=== PATIENT | male | born 1995 | race African-American/Black ===

== ENCOUNTER 2016-12-09 13:20 | Emergency (ER) | payer MEDICAID, OTHER ==
[~2016-12-09] VITALS: Ht 170.2 cm; Wt 80.0 kg
[2016-12-09 13:24] VITALS: BP 135/69; PULSE 88; RESP 18; TEMP 99.5; O2SAT 96
--- NOTE | 2016-12-09 14:52 | PD ---
HPI Chief Complaint: Cold / Flu Symptoms Time Seen by Provider: 14:51 Travel History International Travel<30 days: No Contact w/Intl Traveler<30days: No Traveled to known affect area: No History of Present Illness HPI 21-year-old male presents to the ED via EMS for evaluation of 2 day history of sinus congestion, rhinorrhea, nonproductive cough, shortness of breath. Gradual onset approximately 10 AM yesterday. He endorses subjective fevers, has not taken a temperature at home. Patient denies headache, dizziness, sore throat, chest pain, palpitations, abdominal pain, dysuria, back pain. He endorses sick contacts, states that his young son also has a runny nose. He denies this years flu vaccination. He is a current smoker. Denies chronic health problems, takes no daily medications, NKDA. PFSH Social History Tobacco Use: Yes (current) Allergies-Medications (Allergen,Severity, Reaction): Coded Allergies: No Known Allergies (Unverified , 12/09/16) Reported Meds & Prescriptions Reported Meds & Active Scripts Active Amoxicillin 500 Mg Cap 500 Mg PO BID 10 Days Proair Hfa 8.5 GM Inh (Albuterol Sulfate) 90 Mcg/Act Aer 2 Puff INH Q6H PRN 108 mcg/actuation Review of Systems Except as stated in HPI: all other systems reviewed are Neg Physical Exam Narrative GENERAL: Well-nourished, well-developed black male in no acute distress. SKIN: Warm and dry. HEAD: Normocephalic. Atraumatic. EYES: No scleral icterus. No injection or drainage. PERRLA. EOMI. ENT: Pearly negrete tympanic membranes bilaterally. Nasal mucosa is moist. Oropharynx mild posterior erythema. No exudates or edema. Airway patent. Uvula midline. NECK: Supple, trachea midline. No JVD or lymphadenopathy. CARDIOVASCULAR: Regular rate and rhythm without murmurs, gallops, or rubs. 2+ DP and radial pulses bilaterally. RESPIRATORY: Diffuse wheezing in all lung clancy.. No accessory muscle use. GASTROINTESTINAL: Abdomen soft, non-tender, nondistended. + Bowel sounds MUSCULOSKELETAL: No cyanosis, or edema. Patient is ambulatory and moves extremities spontaneously. BACK: Nontender without obvious deformity. No CVA tenderness. Data Data Last Documented VS Vital Signs Date Time Temp Pulse Resp B/P Pulse Ox O2 Delivery O2 Flow Rate FiO2 12/09/16 13:24 99.5 88 18 135/69 96 Room Air Orders Electrocardiogram (12/09/16 ) Chest, Single Ap (12/09/16 14:58) Albuterol-Ipratropium Neb (Duoneb Neb) (12/09/16 15:00) Dexamethasone Inj (Decadron Inj) (12/09/16 15:00) Influenzae A/B Antigen (12/09/16 14:58) Group A Rapid Strep Screen (12/09/16 14:58) Acetaminophen (Tylenol) (12/09/16 15:00) MDM Medical Decision Making Medical Screen Exam Complete: Yes Emergency Medical Condition: Yes Differential Diagnosis Influenza versus viral syndrome versus asthma versus pneumonia versus strep pharyngitis versus other Narrative Course 21-year-old male smoker presents to the ED via EMS for evaluation of 2 day history of sinus congestion, rhinorrhea, nonproductive cough, shortness of breath. Gradual onset approximately 10 AM yesterday. He endorses subjective fevers, has not taken a temperature at home. Patient denies headache, dizziness , sore throat, chest pain, palpitations, abdominal pain, dysuria, back pain. He endorses sick contacts. He denies this years flu vaccination. Vitals reviewed. Physical exam reveals a oxt-pdvxe-[id number] black male in no acute distress. Mild posterior erythema of the oropharynx. No visible exudates. Uvula midline. Airway patent. There is diffuse wheezing in bilateral lung clancy. Abdomen soft, nontender. Patient was administered Tylenol, IM steroids , 2 nebs 3. EKG: Rate 81, sinus rhythm. MT interval 103, QRS 86, QTC 371. Normal axis. No ST elevations. Reviewed by Dr. Garcia. CXR: No acute cardiopulmonary findings per radiology read. Influenza negative. Rapid strep swab. Positive for group A strep. Recheck of the patient reveals improvement of his breathing symptoms. The lungs are remarkably clear as compared to previous exam. Patient was prescribed amoxicillin 500 mg twice a day 10 days. He was provided with a prescription for a rescue inhaler. He is instructed to take all medication as prescribed, follow up with the primary care provider. He indicated understanding of the instructions and was amenable to plan of care. He is stable and discharged home. Diagnosis Primary Impression: Acute streptococcal pharyngitis Referrals: Primary Care Physician Patient Instructions: General Instructions, Strep Throat (ED), Wheezing (ED) Additional Instructions: Stop smoking. Take all antibiotics as prescribed, even if your symptoms resolve. Albuterol inhaler as needed for wheezing, shortness of breath. Tylenol or ibuprofen as needed for fever. Follow-up with the primary care provider this week. Return to the ED for any urgent or emergent medical condition. Med/Other Pt SpecificInfo: Prescription(s) given Scripts Amoxicillin 500 Mg Puk771 Mg PO BID 10 Days Ref 0 Prov:Santosh Luz MD 12/09/16 Albuterol 8.5 GM Inh (Proair Hfa 8.5 GM Inh)90 Mcg/Act Aer2 Puff INH Q6H PRN ( SHORTNESS OF BREATH) #1 INHALER Ref 0 108 mcg/actuation Prov:Santosh Luz MD 12/09/16 Disposition: 01 DISCHARGE HOME Condition: Stable Yahaira Mott Dec 09, 2016 14:52
[2016-12-09] MEDS ORDERED: RESP: ALBUTEROL 2.5 MG/IPRATROPIUM 0.5 MG NEB (SCH) INH (15:00)
[2016-12-09] MEDS ORDERED: ACETAMINOPHEN 325 MG TAB PO ONE (15:00)
[2016-12-09] MEDS ORDERED: DEXAMETHASONE SOD PHOS 4 MG/ML VIAL IM ONE (15:00)
--- NOTE | 2016-12-09 16:29 | RADRPT ---
EXAM DATE/TIME: 12/09/2016 16:10 [facility] COMPARISON: No previous studies available for comparison. INDICATIONS : Chest congestion, cough for 12 hours MEDICAL HISTORY : None. SURGICAL HISTORY : None. ENCOUNTER: Initial ACUITY: 1 day PAIN SCORE: 5/10 LOCATION: Center of chest FINDINGS: A single view of the chest demonstrates the lungs to be symmetrically aerated without evidence of mas s, infiltrate or effusion. The cardiomediastinal contours are unremarkable. Osseous structures are intact. CONCLUSION: 1. No acute cardiopulmonary findings identified. Jose Calderon MD on December 09, 2016 at 16:27 Board Certified Radiologist. This report was verified electronically.
[2016-12-09] MEDS ORDERED: ALBUAER3 INH (16:42)
[2016-12-09] MEDS ORDERED: AMOX500C PO (16:42)
--- NOTE | 2016-12-10 17:23 | EKG ---
Date Performed: 12/09/2016 Time Performed: 14:07:08 PTAGE: 21 years EKG: Sinus rhythm WITH SHORT HI INTERVAL NONSPECIFIC T-WAVE ABNORMALITY BORDERLINE ECG NO PREVIOUS TRACING DOCTOR: Lionel Serrato Interpretating Date/Time 12/10/2016 17:21:14
== END 2016-12-09 17:11 | disposition home or self-care (01) ==
LOC: NEPB 13:20
DX: J02.0 Streptococcal pharyngitis (principal); B95.0 Streptococcus, group A, as the cause of diseases classified elsewhere; R94.31 Abnormal electrocardiogram [ECG] [EKG]; Z72.0 Tobacco use
CPT/HCPCS: 71010; 87804; 87880; 93005; 94640; 94664; 96372; 99284; J1100

== ENCOUNTER 2018-02-15 10:56 | Emergency (ER) | payer MEDICAID, OTHER ==
[~2018-02-15 10:56] MED LIST: ALBUAER3 INH; AMOX500C PO
[2018-02-15 11:24] VITALS: BP 135/67; PULSE 69; RESP 20; TEMP 98.3; O2SAT 100
[2018-02-15] MEDS ORDERED: IBUPROFEN 800 MG TAB PO ONE (11:45)
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
[2018-02-15] MEDS ORDERED: IBUP1TAB7 PO (12:23)
== END 2018-02-15 13:02 | disposition home or self-care (01) ==
LOC: NEPK 10:56
DX: S49.92XA Unspecified injury of left shoulder and upper arm, initial encounter (principal); V28.0XXA Motorcycle driver injured in noncollision transport accident in nontraffic accident, initial encounter; Z72.0 Tobacco use
CPT/HCPCS: 73030; 99283